=== PATIENT | female | born 1960 | race Caucasian/White ===

== ENCOUNTER 2022-03-15 20:30 | Inpatient (IN) | payer OTHER ==
[~2022-03-15] VITALS: Ht 157.5 cm; Wt 53.4 kg
[~2022-03-15 20:30] MED LIST: ALBU90OI INH; ALBU90OI61 INH; ASPI325 PO; ASPI81CH PO; ATEN100; ATEN50; ATEN50 PO; Aspir 8181 MG PO; CEFD300 PO; CLIN300 PO; CYCL10 PO; GABA600 PO; HYDACE10B PO; HYDACE5 PO; HYDR1TAB94 PO; IBUP800 PO; LISI5 PO; NAPR500 PO; Omeprazole20 M1; PRODEXEL PO; PROM25 PO; Percocet 10-321 EACH PO; Prednisone20 MG PO; Zofran Odt4 MG SL
[2022-03-15 22:33] LABS: BASOPHILS ABSOLUTE AUTO 0.04 K/mm3 (0.00-0.23); BASOPHILS PERCENT AUTO 0 % (0-2); EOSINOPHILS ABSOLUTE AUTO 0.01 K/mm3 (0.00-0.68); EOSINOPHILS PERCENT AUTO 0 % (0-6); Hematocrit 46.6 % (33.0-51.0); Hemoglobin 15.7 g/dL (11.5-16.0); IMMATURE GRAN ABSOLUTE AUTO 0.15 K/mm3 (0.00-0.10); IMMATURE GRAN PERCENT AUTO 1 % (0-1); LYMPHOCYTES ABSOLUTE AUTO 2.65 K/mm3 (0.84-5.20); LYMPHOCYTES PERCENT AUTO 16 % (21-46); MONOCYTES ABSOLUTE AUTO 0.76 K/mm3 (0.16-1.47); MONOCYTES PERCENT AUTO 5 % (4-13); Mean Corpuscular HGB 32.8 pg (26.0-34.0); Mean Corpuscular HGB Conc 33.7 g/dL (31.5-36.5); Mean Corpuscular Volume 98 fL (80-100); Mean Platelet Volume 11.3 fL (9.1-12.4); NEUTROPHILS ABSOLUTE AUTO 12.52 K/mm3 (1.96-9.15); NEUTROPHILS PERCENT AUTO 78 % (41-73); Platelet Count 230 K/mm3 (150-400); RDW Coefficient Variation 14.6 % (11.7-14.2); RDW Standard Deviation 53.1 fL (35.1-46.3); Red Blood Cell Count 4.78 M/mm3 (3.80-5.20); White Blood Cell Count 16.13 K/mm3 (4.00-11.30)
[2022-03-15 22:50] LABS: Albumin, Blood 3.6 g/dL (3.4-5.0); Albumin/Globulin Ratio 0.9 (0.8-1.8); Bilirubin, Total 0.3 mg/dL (0.1-1.0); Bun/Creatinine Ratio 8.8 (12.0-20.0); Calcium, Blood 8.6 mg/dL (8.5-10.1); Creatinine, Blood 5.34 mg/dL (0.40-1.00); Potassium, Blood 3.5 mmol/L (3.5-5.5); Total Protein, Blood 7.6 g/dL (6.4-8.2)
[2022-03-15 23:26] LABS: Source, Urine Clean Catch
[2022-03-15 23:30] LABS: Blood, Urine 2+ (Neg); Glucose Qualitative, Urine Neg (Neg); Ketones, Urine Neg (Neg); Leukocyte Esterase, Urine 3+ (Neg); Nitrite, Urine Neg (Neg); Protein, Urine 2+ (Neg); Urobilinogen, Urine NORM (Normal)
[2022-03-16 00:13] LABS: Appearance, Urine Cloudy (Clear); Bilirubin, Urine 1+ (Neg); Color, Urine Yellow (P-Yellow)
[2022-03-16 00:14] LABS: Bacteria Many /hpf; Squamous Epithelial Cells Few /hpf (Few); White Blood Cells, Urine TNTC /hpf (0-5)
[2022-03-16 01:23] LABS: SARS-Cov-2 (COVID-19) PCR, MMC POSITIVE (NEGATIVE)
--- NOTE | 2022-03-16 03:00 | NUR ---
ICU ADMISSION: PT ARRIVES ADMIT FROM THE ED. PER PT SHE HAD SOME CANNED SOUP x4DAYS AGO AND FOR THE LAST x3DAYS HAS HAD SEVERE DIARRHEA. TODAY SHE FELT MORE WEAK THAN PREVIOUS W/ SYNCOPE WHEN ATTEMPTING TO STAND FROM THE TOILET. DENIES PROLONGED LOC OR HEAD INJURY. UPON ARRIVAL PT WAS FOUND TO BE HYPOTENSIVE, HYPONATREMIC, & COVID +. SEE ADMISSION ASSESSMENT.
[2022-03-16] MEDS ORDERED: Norco 5-325 Ta1 EACH PO (03:21)
[2022-03-16 04:49] LABS: BASOPHILS ABSOLUTE AUTO 0.02 K/mm3 (0.00-0.23); BASOPHILS PERCENT AUTO 0 % (0-2); EOSINOPHILS PERCENT AUTO 0 % (0-6); Hematocrit 39.1 % (33.0-51.0); Hemoglobin 13.2 g/dL (11.5-16.0); IMMATURE GRAN ABSOLUTE AUTO 0.07 K/mm3 (0.00-0.10); IMMATURE GRAN PERCENT AUTO 1 % (0-1); LYMPHOCYTES ABSOLUTE AUTO 2.18 K/mm3 (0.84-5.20); LYMPHOCYTES PERCENT AUTO 19 % (21-46); MONOCYTES ABSOLUTE AUTO 0.65 K/mm3 (0.16-1.47); MONOCYTES PERCENT AUTO 6 % (4-13); Mean Corpuscular HGB Conc 33.8 g/dL (31.5-36.5); Mean Corpuscular Volume 98 fL (80-100); Mean Platelet Volume 11.2 fL (9.1-12.4); NEUTROPHILS ABSOLUTE AUTO 8.52 K/mm3 (1.96-9.15); NEUTROPHILS PERCENT AUTO 74 % (41-73); Platelet Count 179 K/mm3 (150-400); RDW Coefficient Variation 14.6 % (11.7-14.2); RDW Standard Deviation 53.2 fL (35.1-46.3); White Blood Cell Count 11.44 K/mm3 (4.00-11.30)
[2022-03-16 05:17] LABS: Bun/Creatinine Ratio 11.8 (12.0-20.0); Calcium, Blood 7.4 mg/dL (8.5-10.1); Creatinine, Blood 3.91 mg/dL (0.40-1.00); Potassium, Blood 3.6 mmol/L (3.5-5.5)
--- NOTE | 2022-03-16 05:23 | NUR ---
UPDATE: PT EDUCATION PT CONTINUES TO INSIST SHE DOES NOT HAVE COVID, STS "I DON'T SEE ANYBODY, I'M HEALTHY, AND I'M VACCINATED", "I WILL BE GETTING RETESTED AT MY OWN DR". GIVEN EDUCATION ON THE INCIDENCE OF SECONDARY FINDINGS W/ COVID & THE IMPORTANCE OF CONTINUING TO ISOLATE AFTER DC. APPEARS SOMEWHAT RECEPTIVE & REMAINS COOPERATIVE W/ CARE.
[2022-03-16 09:11] LABS: Bun/Creatinine Ratio 12.6 (12.0-20.0); Calcium, Blood 7.6 mg/dL (8.5-10.1); Creatinine, Blood 3.18 mg/dL (0.40-1.00); Potassium, Blood 3.8 mmol/L (3.5-5.5)
--- NOTE | 2022-03-16 09:30 | NUR ---
DR PAVON IN SEEING PATIENT NOW, RESIDENT X2 HAVE ROUNDED ON PATIENT, PATIENT MAKES NEEDS KNOWN, ALERT AND ORIENTED, CALL LIGHT WITH IN REACH, WCTM
--- NOTE | 2022-03-16 13:35 | NUR ---
Upon receiving a referral for spiritual care, I visit pt. Pt immediately tells me about her medical issues and then explains about her solid family and friend support network and her strong Confucianist hermelindo. She says that she will be well soon and will leave the hospital when she feels her health is stabilized regardless of whether medical staff agree or not. I provide therapeutic listening, gentle rehabilitation counsellor and prayer. Pt responds well and shows signs of greater peace. I will continue to remain available to patient and family.
--- NOTE | 2022-03-16 18:12 | NUR ---
PATIENT ALERT AND ORIENTED, MAKES NEEDS KNOWN, CALL LIGHT WITH IN REACH, STAND BY ASSIST TO BR, STEADY GAIT. LS CLEAR TO COARSE AT TIMES, USES INHALER AND ONE DOSE OF SOLUMEDROL GIVEN PER DR GUERRIER, 98% ON RA, RESP 15-20, HEART RATE SB TO NSR, HEART RATE LOW 38 THIS AM BUT NOW 67, LEVOPHED GTT OFF SINCE 1130, SBP 100-120S, MAP 60 OR GREATER, DENIES CP. PATIENT CONTINENT TO USE CALL LIGHT FOR BSC. DIET RENAL/MECHANICAL SOFT PER PATIENT, POOR DENTITION. CALL LIGHT WITH IN REACH, WILL RELAY TO PM RN, WCTM
--- NOTE | 2022-03-16 21:07 | NUR ---
ASSUMED CARE OF PATIENT AT 1900, PT IS A/O, DENIES ANY COMPLAINTS, STATES NO N/V/D. STATES THAT SHE FEELS MUCH BETTER. ASKS FOR SOMETHING TO DRINK OTHER THAN WATER. USES BSC WITHOUT ASSISTANCE, DENIES ANY DIZZINESS/LIGHTHEADEDNESS AT THIS TIME. WILL CALL FOR ANY NEEDS. PT IS GIVEN HEATING PAD FOR LEGS SHE STATES THAT THEY ARE UNCOMFORTABLE AND THAT THIS IS NOT NEW. HS MEDS GIVEN, INCLUDING THE GABAPENTIN.
--- NOTE | 2022-03-17 00:36 | NUR ---
XIN IS RESTING QUIETLY AND THUS HER HEART RATE IS RUNNING IN THE MID-HIGH 40'S. BP STABLE, RESPIRATORY RATE/PATTERN CONSISTENT, SATURATIONS 92%.
[2022-03-17 03:38] LABS: Hematocrit 38.9 % (33.0-51.0); Hemoglobin 13.4 g/dL (11.5-16.0)
[2022-03-17 03:59] LABS: Albumin, Blood 2.7 g/dL (3.4-5.0); Anion Gap 8 mmol/L (6-16); Blood Urea Nitrogen 32 mg/dL (8-24); Bun/Creatinine Ratio 23.4 (12.0-20.0); CO2, Blood 19 mmol/L (21-32); Calcium, Blood 7.9 mg/dL (8.5-10.1); Chloride, Blood 113 mmol/L (98-108); Creatinine, Blood 1.37 mg/dL (0.40-1.00); Glomerular Filtration Rate 43 (60-); Glucose, Blood 114 mg/dL (70-99); Magnesium, Blood 1.9 mg/dL (1.6-2.4); Phosphorus, Blood 2.8 mg/dL (2.5-4.9); Potassium, Blood 3.8 mmol/L (3.5-5.5); Sodium, Blood 140 mmol/L (136-145)
--- NOTE | 2022-03-17 04:29 | NUR ---
XIN HAS BEEN INDEPENDENT IN HER ROOM TO [place] [facility] [place], HER ONLY COMPLAINT HAS BEEN HER LEG PAIN/CRAMPING. THE KPAD IS IN USE AND SHE STATES THAT IT IS HELPFUL. SHE HAS BEEN TAKING IN WATER AND SPRITE, TRIED A COUPLE OF BITES OF PUDDING. SHE IS REQUESTING THAT SHE BE ABLE TO GO HOME TODAY, HER LABS ARE IMPROVED, SHE SAYS SHE HAS THINGS TO DO AT HOME. CONTINUES ON ROOM AIR, BLOOD PRESSURE STBLE, HEART RATE DROPS WHEN SLEEPING QUIETLY.
--- NOTE | 2022-03-17 05:34 | NUR ---
SUMMARY: XIN HAS BEEN PLEASANT AND COOPERATIVE, SHE IS ON ROOM AIR, SATS >95%, BREATHING NON-LABORED, OCC COUGH. DID USE THE ALBUTEROL INHALER X1 FOR C/O SOB AFTER USING THE COMMODE. DRY COUGH. ABD SOFT NON TENDER, TAKING IN PO FLUIDS WELL. UP TO BSC TO VOID WITH ONE LOOSE BM. PT WITH BP STABLE, OFF PRESSORS, MAP >65, HEART RATE DID DROP TO MID-LOW 40'S WHILE SLEEPING. CONTINUES ON 1/2 NS W/ SODIUM BICARB AT 75ML/HR WITH IMPROVEMENT IN ALL HER LABS THIS AM. SHE IS ASKING THAT SHE GOES HOME TODAY, HER ONLY COMPLAINT BEING HER LEGS BEING UNCOMFORTABLE, MEDICATED WITH TYLENOL AND NORCO PER DEC, HEATING PAD IN USE.
--- NOTE | 2022-03-17 07:59 | NUR ---
PT RESTING IN BED EATING BREAKFAST. PT IS A/O X4, DENIES SOB AND N/V. HAS CHRONIC COUGH FROM SMOKING. ON RA. PT IS INDEP TO BSC, DENIES DIZZINESS. NO SIGN OF DISTRESS.
--- NOTE | 2022-03-17 12:18 | NUR ---
PT STABLE T/O THE DAY. A/O X4, INDEP IN ROOM. PT D/C'D HOME. RX FAXED TO [facility]. NO SIGN OF DISTRESS SHE IS WHEELED OUT OF UNIT IN W/C.
== END 2022-03-17 12:15 | disposition home or self-care (01) | DRG 682 ==
LOC: ER 20:30 → ICUW 03-16 00:13
PROVIDERS: Emergency Medicine; Internal Medicine Nephrology; Student in an Organized Health Care Education/Training Program; ADMIT Family Medicine
PROC: 3E033XZ Introduction of Vasopressor into Peripheral Vein, Percutaneous Approach (ICD-10-PCS; principal; 2022-03-16)
PROC: 8E0ZXY6 Isolation (ICD-10-PCS; 2022-03-16)
PROC: 3E0333Z Introduction of Anti-inflammatory into Peripheral Vein, Percutaneous Approach (ICD-10-PCS; 2022-03-16)
DX: N17.9 Acute kidney failure, unspecified (principal); U07.1 COVID-19; R57.1 Hypovolemic shock; E87.2 Acidosis; E87.1 Hypo-osmolality and hyponatremia; E46 Unspecified protein-calorie malnutrition; E88.09 Other disorders of plasma-protein metabolism, not elsewhere classified; D63.1 Anemia in chronic kidney disease; D72.828 Other elevated white blood cell count; K21.9 Gastro-esophageal reflux disease without esophagitis; I12.9 Hypertensive chronic kidney disease with stage 1 through stage 4 chronic kidney disease, or unspecified chronic kidney disease; N18.30 Chronic kidney disease, stage 3 unspecified; R00.1 Bradycardia, unspecified; F17.210 Nicotine dependence, cigarettes, uncomplicated; E86.0 Dehydration; Z96.642 Presence of left artificial hip joint; Z68.22 Body mass index [BMI] 22.0-22.9, adult; Z71.6 Tobacco abuse counseling; Z98.51 Tubal ligation status; Z88.0 Allergy status to penicillin; Z91.018 Allergy to other foods; Z91.038 Other insect allergy status; Z79.82 Long term (current) use of aspirin; Z79.899 Other long term (current) drug therapy
CPT/HCPCS: 36415; 71045; 76770; 80048; 80053; 80069; 81001; 83605; 83690; 83735; 84484; 85014; 85018; 85025; 87040; 87077; 87086; 87186; 93005; 93010; 94640; 94664; 96365; 96375; 99285-25; A9270; J0696; J1644; J2930; J7030; J7060; U0004

== ENCOUNTER → 2024-07-23 | Outpatient (CLI) | payer OTHER ==
[~2024-07-23] MED LIST changes: +COLCHICINE0.6 MG PO; +FAMO20 PO; +Norco 5-325 Ta1 EACH PO
== END ==
LOC: LAB 09:00 → LAB SHORT 09:00
DX: M25.552 Pain in left hip (principal); M71.052 Abscess of bursa, left hip
CPT/HCPCS: 87070; 87077; 87205